=== PATIENT | male | born 2000 | race Caucasian/White ===

== ENCOUNTER 2018-08-18 16:44 | Emergency (ER) | payer OTHER ==
[~2018-08-18] VITALS: Ht 185.4 cm; Wt 70.6 kg
--- NOTE | 2018-08-18 18:21 | REP ---
REASON: Head trauma. PRIORS: None. TECHNIQUE: 4.5 mm contiguous transaxial sections were obtained from the skull base to the cerebral convexities with thin cuts through the posterior fossa without the administration of intravenous contrast. FINDINGS: The ventricles and sulci are consistent with the patient's age. There are no extra-axial fluid collections. There is no mass effect. The deep cerebral white matter is consistent with the patient's age. The orbital and petrous structures, cerebellopontine angles, and posterior fossa are unremarkable. The sella turcica, cavernous, and paracavernous structures are essentially unremarkable. The visualized portions of the paranasal sinuses and mastoid air cells are clear. Images of the skull base show no gross abnormality. IMPRESSION: Essentially unremarkable CT examination of the brain. Electronically Signed by Arthur Hugo DO 08/18/2018 07:42 P
[2018-08-18] MEDS ORDERED: IBUPROFEN 600 MG TAB PO ONE (20:00)
[2018-08-18 20:05] VITALS: BP 128/61
== END 2018-08-18 20:06 | disposition home or self-care (01) ==
LOC: M ED 16:44
DX: S06.0X0A Concussion without loss of consciousness, initial encounter (principal); V40.5XXA Car driver injured in collision with pedestrian or animal in traffic accident, initial encounter; Y92.9 Unspecified place or not applicable; Y93.9 Activity, unspecified; Y99.9 Unspecified external cause status